=== PATIENT | male | born 1935 | race Caucasian/White ===

== ENCOUNTER 2019-04-08 07:26 | Emergency (ER) | payer MEDICARE, OTHER ==
[~2019-04-08] VITALS: Ht 182.9 cm; Wt 82.5 kg
[2019-04-08 08:43] VITALS: BP 143/108
== END 2019-04-08 10:35 | disposition home or self-care (01) ==
LOC: ER 07:27
DX: S93.402A Sprain of unspecified ligament of left ankle, initial encounter (principal); S80.02XA Contusion of left knee, initial encounter; S80.01XA Contusion of right knee, initial encounter; S90.02XA Contusion of left ankle, initial encounter; S80.212A Abrasion, left knee, initial encounter; S80.211A Abrasion, right knee, initial encounter; Z88.0 Allergy status to penicillin; W10.8XXA Fall (on) (from) other stairs and steps, initial encounter; Y93.01 Activity, walking, marching and hiking; Y92.89 Other specified places as the place of occurrence of the external cause; Y99.8 Other external cause status
CPT/HCPCS: 29505; 73564; 73610; 73630; 99284

== ENCOUNTER 2019-04-19 11:21 | Outpatient (CLI) | payer MEDICARE, OTHER ==
[2019-04-19 11:32] VITALS: BP 100/63
== END 2019-04-19 14:45 | disposition home or self-care (01) ==
LOC: ORTHO 11:21
PROVIDERS: ATTEND Orthopaedic Surgery
DX: M19.072 Primary osteoarthritis, left ankle and foot (principal)
CPT/HCPCS: 73610; G0463

== ENCOUNTER 2021-02-26 18:30 | Emergency (ER) | payer MEDICARE, OTHER ==
[~2021-02-26] VITALS: Ht 182.9 cm; Wt 81.8 kg
[~2021-02-26 18:30] MED LIST: AMIO200T67 PO; APIX5TAB3 PO; CARV6.253 PO; MULT-1074 PO; NITR0.4T51 SL; OMEG1CAP46 PO; SIMV20TA PO; VIT1CAPS46 PO
[2021-02-26 18:40] VITALS: BP 180/88
--- NOTE | 2021-02-26 18:55 | NUR ---
He came in by EMS. Brought to triage. Many covid symptoms despite vaccination, taken to [facility]
--- NOTE | 2021-02-26 19:36 | NUR ---
atilio (daughter) [phone] Oskar (son) [phone]
[2021-02-26 20:57] LABS: EOSINOPHILS % (AUTO) 0.1 % (0-6); HEMOGLOBIN 14.9 g/dl (14.0-17.9); MONOCYTES # (AUTO) 0.6 X10'3 (0-0.9)
[2021-02-26 20:59] LABS: BASOPHILS % (AUTO) 0.6 % (0-1); HEMATOCRIT 44.3 % (42.0-52.0); LYMPHOCYTES # (AUTO) 0.5 X10'3 (1.1-4.8); LYMPHOCYTES % (AUTO) 5.8 % (21-51); MEAN CORPUSCULAR HGB CONC 33.5 g/dL (33.0-36.5); MEAN CORPUSCULAR VOLUME 95.6 FL (78-98); MEAN PLATELET VOLUME 7.7 FL (7.4-10.4); MONOCYTES % (AUTO) 8.2 % (2-12); NEUTROPHILS # (AUTO) 6.7 X10'3 (1.8-7.7); NEUTROPHILS % (AUTO) 85.3 % (42-75); PLATELET COUNT 224 X10'3 (140-440); RED BLOOD COUNT 4.64 X10'6 (4.70-6.10); RED CELL DISTRIBUTION WIDTH 14.1 % (11.5-14.5); WHITE BLOOD COUNT 7.8 X10'3 (4.5-11.0)
[2021-02-26 21:22] LABS: ALANINE AMINOTRANSFERASE 38 U/L (12-78); ALBUMIN 4.1 G/DL (3.4-5.0); ALBUMIN/GLOBULIN RATIO 1.1 (1.1-1.5); ALKALINE PHOSPHATASE 86 IU/L (46-116); ANION GAP 9 (8-16); ASPARTATE AMINO TRANSFERASE 37 U/L (10-37); BILIRUBIN,TOTAL 0.6 MG/DL (0.1-1.0); BLOOD UREA NITROGEN 19 MG/DL (7-18); BUN/CREATININE RATIO 17.9 (5.4-32.0); CALCIUM 9.1 MG/DL (8.5-10.1); CHLORIDE 104 MMOL/L (99-107); CREATININE 1.06 MG/DL (0.60-1.10); GLUCOSE 131 MG/DL (70-104); POTASSIUM 3.8 MMOL/L (3.5-5.1); SODIUM 140 MMOL/L (135-145); TOTAL CARBON DIOXIDE 27.5 MMOL/L (24-32); TOTAL PROTEIN 7.7 G/DL (6.4-8.2); eGFR 66 ML/MIN
== END 2021-02-26 23:10 | disposition home or self-care (01) ==
LOC: ER 18:31
DX: R53.1 Weakness (principal); Z20.822 Contact with and (suspected) exposure to COVID-19; R05 Cough; R11.0 Nausea; R06.02 Shortness of breath; I48.91 Unspecified atrial fibrillation; I10 Essential (primary) hypertension; Z88.0 Allergy status to penicillin; Z79.899 Other long term (current) drug therapy; Z79.01 Long term (current) use of anticoagulants; W19.XXXA Unspecified fall, initial encounter
CPT/HCPCS: 36415; 71045; 80053; 85025; 87635; 93005; 99285; C9803; U0003; U0005

== ENCOUNTER 2021-03-11 06:56 | Outpatient (CLI) | payer OTHER ==
[~2021-03-11] VITALS: Ht 182.9 cm; Wt 78.9 kg
[2021-03-11] MEDS ORDERED: albuterol 2.5 MG/3 ML nebule NEB ONE (08:00)
== END 2021-03-11 23:59 | disposition home or self-care (01) ==
LOC: RT 06:56
PROVIDERS: ATTEND Internal Medicine Cardiovascular Disease
DX: R94.2 Abnormal results of pulmonary function studies (principal); J98.11 Atelectasis; M47.819 Spondylosis without myelopathy or radiculopathy, site unspecified; Z79.899 Other long term (current) drug therapy
CPT/HCPCS: 71046; 94060; 94727; 94729; 94760

== ENCOUNTER 2021-10-20 15:57 | Inpatient (IN) | payer OTHER ==
[~2021-10-20] VITALS: Ht 182.9 cm; Wt 87.8 kg
[2021-10-20 16:31] LABS: BASOPHILS # (AUTO) 0.1 X10'3 (0-0.2); BASOPHILS % (AUTO) 1.2 % (0-1); EOSINOPHILS # (AUTO) 0.1 X10'3 (0-0.9); EOSINOPHILS % (AUTO) 1.5 % (0-6); HEMATOCRIT 40.7 % (42.0-52.0); HEMOGLOBIN 13.4 g/dl (14.0-17.9); LYMPHOCYTES # (AUTO) 1.2 X10'3 (1.1-4.8); LYMPHOCYTES % (AUTO) 15.1 % (21-51); MEAN CORPUSCULAR HEMOGLOBIN 31.1 PG (27.0-31.0); MEAN CORPUSCULAR HGB CONC 32.8 g/dL (33.0-36.5); MEAN CORPUSCULAR VOLUME 94.8 FL (78-98); MEAN PLATELET VOLUME 8.3 FL (7.4-10.4); MONOCYTES # (AUTO) 0.6 X10'3 (0-0.9); MONOCYTES % (AUTO) 7.3 % (2-12); NEUTROPHILS # (AUTO) 5.8 X10'3 (1.8-7.7); NEUTROPHILS % (AUTO) 74.9 % (42-75); PLATELET COUNT 233 X10'3 (140-440); RED BLOOD COUNT 4.29 X10'6 (4.70-6.10); RED CELL DISTRIBUTION WIDTH 15.5 % (11.5-14.5); WHITE BLOOD COUNT 7.7 X10'3 (4.5-11.0)
[2021-10-20 17:03] LABS: ALANINE AMINOTRANSFERASE 37 U/L (12-78); ALBUMIN 4.1 G/DL (3.4-5.0); ALBUMIN/GLOBULIN RATIO 1.1 (1.1-1.5); ALKALINE PHOSPHATASE 81 IU/L (46-116); ANION GAP 10 (8-16); ASPARTATE AMINO TRANSFERASE 28 U/L (10-37); BILIRUBIN,TOTAL 0.8 MG/DL (0.1-1.0); BLOOD UREA NITROGEN 26 MG/DL (7-18); BUN/CREATININE RATIO 18.6 (5.4-32.0); CALCIUM 9.2 MG/DL (8.5-10.1); CHLORIDE 105 MMOL/L (99-107); GLUCOSE 128 MG/DL (70-104); POTASSIUM 4.1 MMOL/L (3.5-5.1); SODIUM 143 MMOL/L (135-145); TOTAL CARBON DIOXIDE 28.4 MMOL/L (24-32); TOTAL PROTEIN 7.7 G/DL (6.4-8.2); eGFR 48 ML/MIN
--- NOTE | 2021-10-20 18:00 | NUR ---
PT IS RESTING QUIETLY ON GURNEY, RESP EVEN AND UNLABORED, SKIN P/W/D, PT SAID HIS NORMAL HEART RATE IS MID 40S, RANGING FROM 35 TO 45 ON MONITOR, PT DENIES FEELING DIZZY, LIGHTHEADED
--- NOTE | 2021-10-20 18:26 | NUR ---
PT MOVED FROM FAST TRACK TO ROOM 13
[2021-10-20] MEDS ORDERED: SIMV-42 PO (19:36)
[2021-10-20] MEDS ORDERED: LISI20TA28 PO ×2 (19:36→19:37)
[2021-10-20] MEDS ORDERED: nitroGLYCERIN 0.4mg SUBLingual tab SL PRN ×2 (20:00→20:05)
[2021-10-20] MEDS ORDERED: normal saline 1000ml 1,000 ML IV SCH (20:00)
[2021-10-20] MEDS ORDERED: non-formulary drug (Vit C/E/Zn/Coppr/Lutein/Zeaxan (Preservision Areds 2 Softgel) 1 CAP) PO SCH (20:00)
[2021-10-20] MEDS: carvedilol 6.25mg tablet PO SCH (20:00)
[2021-10-20] MEDS ORDERED: mag hydrox/Alum hydrox/simeth 30ml oral suspension PO PRN (20:05)
[2021-10-20] MEDS ORDERED: magnesium 2GM in 50ml NS 50 ML IV PRN (20:05)
[2021-10-20] MEDS ORDERED: potassium CL 10mEq/100ml bag 100 ML IV PRN (20:05)
[2021-10-20] MEDS ORDERED: magnesium hydroxide 30ml (MOM) UD suspension PO PRN (20:05)
[2021-10-20] MEDS ORDERED: ipratropium/albuterol 3ml nebule NEB PRN (20:05)
[2021-10-20] MEDS ORDERED: PERFLUTREN PROTEIN-A MICROSPHR (Optison) 0.22 MG/ML 3ML VIAL IV ONE (20:05)
[2021-10-20] MEDS ORDERED: aminophylline 250mg/10ml inj. IV PRN (20:05)
[2021-10-20] MEDS ORDERED: potassium Cl 20 mEq SR tablet PO PRN ×2 (20:05)
[2021-10-20] MEDS ORDERED: regadenoson 0.4mg/5ml syringe IV PRN (20:05)
[2021-10-20] MEDS ORDERED: magnesium 4gm in 100ml NS 100 ML IV PRN (20:05)
[2021-10-20] MEDS ORDERED: albuterol 2.5 MG/3 ML nebule NEB PRN (20:05)
[2021-10-20] MEDS ORDERED: acetaminophen 325mg tablet PO PRN (20:05)
[2021-10-20] MEDS ORDERED: ondansetron/PF 4mg/2ml inj IV PRN (20:05)
[2021-10-20] MEDS ORDERED: metoprolol tartrate 1mg/ml inj IV PRN (20:05)
[2021-10-20] MEDS: apixaban 5mg tablet PO SCH (20:48)
[2021-10-20] MEDS: OMEGA-3/DHA/EPA/FISH OIL 1 EACH CAPSULE.DR PO SCH (20:48)
[2021-10-20] MEDS: atorvastatin 20mg tablet PO SCH (20:48)
--- NOTE | 2021-10-20 22:37 | NUR ---
Received report from WILMAR Villarreal. Awaiting patient arrival to the floor.
[2021-10-20] MEDS ORDERED: iohexol 350MG/ML 100ml bottle IV ONE (23:23)
--- NOTE | 2021-10-20 23:29 | NUR ---
Pt taken to CT and then will be taken to new room on the floor by RN
[2021-10-21] VITALS (8 sets, daily range): BP systolic 111–170; BP diastolic 52–76
[2021-10-21] MEDS ORDERED: albuterol 2.5 MG/3 ML nebule NEB STA (00:53)
[2021-10-21] MEDS ORDERED: LIDOcaine 2% 10ml TOPICAL JELLY (Urojet) MM ONE (01:05)
[2021-10-21] MEDS ORDERED: furosemide 40mg/4ml inj IV ONE (01:05)
[2021-10-21 01:12] LABS: ABG BASE EXCESS -2.4 mmol/L (-2.0-2.0); ABG HCO3 22.7 mmol/L (22.0-26.0); ABG OXYGEN SATURATION 93.1 % (94-97); ABG PCO2 (T) 39.1 mmHg (35.0-48.0); ABG PO2 (T) 65.1 mmHg (75.0-100.0); ALLEN'S TEST Modified; FCOHb 0.4 % (0.0-3.9); FLOW 6 L/min; FMetHb 0.2 % (0.0-1.5); FO2Hb 92.5 % (94-97); PATIENT TEMPERATURE 36.4; TOTAL HEMOGLOBIN 14.3 G/dl (14.0-18.0)
[2021-10-21 01:25] LABS: BASOPHILS # (AUTO) 0.1 X10'3 (0-0.2); BASOPHILS % (AUTO) 0.7 % (0-1); EOSINOPHILS # (AUTO) 0.2 X10'3 (0-0.9); EOSINOPHILS % (AUTO) 1.8 % (0-6); HEMATOCRIT 40.3 % (42.0-52.0); HEMOGLOBIN 13.8 g/dl (14.0-17.9); LYMPHOCYTES # (AUTO) 1.3 X10'3 (1.1-4.8); LYMPHOCYTES % (AUTO) 13.1 % (21-51); MEAN CORPUSCULAR HEMOGLOBIN 32.5 PG (27.0-31.0); MEAN CORPUSCULAR HGB CONC 34.2 g/dL (33.0-36.5); MEAN PLATELET VOLUME 8.3 FL (7.4-10.4); MONOCYTES # (AUTO) 0.7 X10'3 (0-0.9); MONOCYTES % (AUTO) 6.6 % (2-12); NEUTROPHILS # (AUTO) 7.9 X10'3 (1.8-7.7); NEUTROPHILS % (AUTO) 77.8 % (42-75); PLATELET COUNT 218 X10'3 (140-440); RED BLOOD COUNT 4.24 X10'6 (4.70-6.10); RED CELL DISTRIBUTION WIDTH 15.1 % (11.5-14.5); WHITE BLOOD COUNT 10.2 X10'3 (4.5-11.0)
--- NOTE | 2021-10-21 01:30 | NUR ---
0025: Patient complained of sudden onset/worsening shortness of breath. Elevated patient head of bed to high Velasquez's and placed on 2L NC as SpO2 was down to 70% on room air, with BP of 171/77 HR 59, Temp 97.6, RR 30. Paged RT and Rapid response. 0035: Rapid response Team arrived and evaluated the patient. Night time Hospitalist MD Jerzy aware and orders placed appropriately for treatment. 0125: Patient remained on the floor. Patient states he's feeling better. Will continue to monitor patient.
[2021-10-21 01:34] LABS: APTT 34 SECONDS (22-32)
[2021-10-21 01:43] LABS: ALBUMIN 3.9 G/DL (3.4-5.0); ANION GAP 8 (8-16); BLOOD UREA NITROGEN 25 MG/DL (7-18); BUN/CREATININE RATIO 19.2 (5.4-32.0); CALCIUM 8.8 MG/DL (8.5-10.1); CHLORIDE 106 MMOL/L (99-107); GLUCOSE 154 MG/DL (70-104); POTASSIUM 4.1 MMOL/L (3.5-5.1); SODIUM 141 MMOL/L (135-145); TOTAL CARBON DIOXIDE 26.6 MMOL/L (24-32); eGFR 52 ML/MIN
--- NOTE | 2021-10-21 06:22 | NUR ---
Problems reprioritized. Patient report given, questions answered & plan of care reviewed with WILMAR Curry.
[2021-10-21] MEDS: carvedilol 6.25mg tablet PO SCH ×2 (08:00→20:12)
[2021-10-21] MEDS: apixaban 5mg tablet PO SCH (08:00)
[2021-10-21] MEDS: OMEGA-3/DHA/EPA/FISH OIL 1 EACH CAPSULE.DR PO SCH ×2 (08:00→20:12)
[2021-10-21] MEDS: K and/or MAG REPLACEMENT MC SCH ×2 (08:00→19:06)
[2021-10-21] MEDS: multivitamins, therapeutics tablet PO SCH (08:33)
[2021-10-21] MEDS: docusate sod 100mg capsule PO SCH ×2 (08:33→20:12)
[2021-10-21] MEDS: amiodarone 200mg tablet PO SCH (08:38)
[2021-10-21 08:39] LABS: BASOPHILS % (AUTO) 0.5 % (0-1); EOSINOPHILS % (AUTO) 0.2 % (0-6); HEMATOCRIT 41.5 % (42.0-52.0); HEMOGLOBIN 14.1 g/dl (14.0-17.9); LYMPHOCYTES # (AUTO) 0.9 X10'3 (1.1-4.8); LYMPHOCYTES % (AUTO) 8.8 % (21-51); MEAN CORPUSCULAR HEMOGLOBIN 32.4 PG (27.0-31.0); MEAN CORPUSCULAR VOLUME 95.2 FL (78-98); MEAN PLATELET VOLUME 8.3 FL (7.4-10.4); MONOCYTES # (AUTO) 0.7 X10'3 (0-0.9); MONOCYTES % (AUTO) 6.9 % (2-12); NEUTROPHILS # (AUTO) 8.1 X10'3 (1.8-7.7); NEUTROPHILS % (AUTO) 83.6 % (42-75); PLATELET COUNT 222 X10'3 (140-440); RED BLOOD COUNT 4.36 X10'6 (4.70-6.10); RED CELL DISTRIBUTION WIDTH 14.9 % (11.5-14.5); WHITE BLOOD COUNT 9.7 X10'3 (4.5-11.0)
--- NOTE | 2021-10-21 08:40 | NUR ---
PAGER ID: [phone] MESSAGE: [id number]. Jaya Rao. Active hematuria with sediment from f/c. UA? give or hold Eliquis? Thx Nathalie [phone]
[2021-10-21 08:47] LABS: ALANINE AMINOTRANSFERASE 41 U/L (12-78); ALBUMIN 4.1 G/DL (3.4-5.0); ALBUMIN/GLOBULIN RATIO 1.2 (1.1-1.5); ALKALINE PHOSPHATASE 74 IU/L (46-116); ANION GAP 10 (8-16); ASPARTATE AMINO TRANSFERASE 33 U/L (10-37); BILIRUBIN,TOTAL 1.2 MG/DL (0.1-1.0); BLOOD UREA NITROGEN 24 MG/DL (7-18); BUN/CREATININE RATIO 18.6 (5.4-32.0); CALCIUM 9.1 MG/DL (8.5-10.1); CHLORIDE 103 MMOL/L (99-107); CREATININE 1.29 MG/DL (0.60-1.10); GLUCOSE 115 MG/DL (70-104); MAGNESIUM 2.1 MG/DL (1.5-2.4); POTASSIUM 3.8 MMOL/L (3.5-5.1); SODIUM 142 MMOL/L (135-145); TOTAL CARBON DIOXIDE 29.1 MMOL/L (24-32); TOTAL PROTEIN 7.6 G/DL (6.4-8.2); eGFR 53 ML/MIN
[2021-10-21] MEDS: lisinopril 20mg tablet PO SCH (08:49)
[2021-10-21] MEDS: furosemide 40mg/4ml inj IV SCH ×2 (09:10→20:29)
--- NOTE | 2021-10-21 10:56 | NUR ---
Per MD Fuentes - hold eliquis for today - restart 10/22/21.
--- NOTE | 2021-10-21 10:58 | NUR ---
Per MD Fuentes - irrigate f/c until clear, not continous irrigation. Per Addendum: 10/21/21 at 1100 by Nathalie Herrera RN No UA needed at this time.
[2021-10-21] MEDS ORDERED: aminophylline 500mg/20ml vial IV PRN (13:05)
--- NOTE | 2021-10-21 13:55 | NUR ---
Lydia-care/FC care performed, scant amount of blood tinged discharge at meatus MD aware, catheter flushed until clear per MD orders 120mL of sterile water used to obtain clear drainage. Patient tolerated well with no c/o pain or discomfort.
--- NOTE | 2021-10-21 15:16 | NUR ---
Paged Dr Fuentes PAGER ID: [phone] MESSAGE: [id number]. Jaya Rao. Need diet order. [facility] Nathalie [phone]
--- NOTE | 2021-10-21 17:56 | NUR ---
Orientee documentation: I have reviewed and agree with all interventions, assessments performed and documented by BINU Crabtree II.
--- NOTE | 2021-10-21 18:36 | NUR ---
Patient in room PCU 3015. I have received report from ALEXANDER URBAN and had the opportunity to ask questions and assume patient care.
[2021-10-21] MEDS: atorvastatin 20mg tablet PO SCH (20:12)
[2021-10-21] MEDS ORDERED: furosemide 40mg/4ml inj ONE (20:28)
[2021-10-22 02:00] VITALS: BP 122/40
[2021-10-22 06:00] VITALS: BP 100/37
--- NOTE | 2021-10-22 06:14 | NUR ---
Problems reprioritized. Patient report given, questions answered & plan of care reviewed with RONY URBAN.
[2021-10-22 06:45] LABS: BASOPHILS # (AUTO) 0.1 X10'3 (0-0.2); BASOPHILS % (AUTO) 0.7 % (0-1); EOSINOPHILS # (AUTO) 0.1 X10'3 (0-0.9); EOSINOPHILS % (AUTO) 0.5 % (0-6); HEMATOCRIT 40.8 % (42.0-52.0); HEMOGLOBIN 13.8 g/dl (14.0-17.9); LYMPHOCYTES % (AUTO) 10.6 % (21-51); MEAN CORPUSCULAR HEMOGLOBIN 31.6 PG (27.0-31.0); MEAN CORPUSCULAR HGB CONC 33.9 g/dL (33.0-36.5); MEAN CORPUSCULAR VOLUME 93.2 FL (78-98); MEAN PLATELET VOLUME 8.5 FL (7.4-10.4); MONOCYTES # (AUTO) 0.9 X10'3 (0-0.9); MONOCYTES % (AUTO) 9.5 % (2-12); NEUTROPHILS # (AUTO) 7.7 X10'3 (1.8-7.7); NEUTROPHILS % (AUTO) 78.7 % (42-75); PLATELET COUNT 227 X10'3 (140-440); RED BLOOD COUNT 4.37 X10'6 (4.70-6.10); RED CELL DISTRIBUTION WIDTH 15.2 % (11.5-14.5); WHITE BLOOD COUNT 9.8 X10'3 (4.5-11.0)
[2021-10-22 07:11] LABS: ALANINE AMINOTRANSFERASE 36 U/L (12-78); ALBUMIN 3.7 G/DL (3.4-5.0); ALBUMIN/GLOBULIN RATIO 1.1 (1.1-1.5); ALKALINE PHOSPHATASE 67 IU/L (46-116); ANION GAP 9 (8-16); ASPARTATE AMINO TRANSFERASE 27 U/L (10-37); BILIRUBIN,TOTAL 1.3 MG/DL (0.1-1.0); BLOOD UREA NITROGEN 30 MG/DL (7-18); BUN/CREATININE RATIO 20.8 (5.4-32.0); CHLORIDE 102 MMOL/L (99-107); CREATININE 1.44 MG/DL (0.60-1.10); GLUCOSE 126 MG/DL (70-104); MAGNESIUM 2.2 MG/DL (1.5-2.4); POTASSIUM 3.5 MMOL/L (3.5-5.1); SODIUM 142 MMOL/L (135-145); TOTAL CARBON DIOXIDE 30.9 MMOL/L (24-32); eGFR 47 ML/MIN
[2021-10-22 07:54] LABS: CALCIUM 9.1 MG/DL (8.5-10.1)
[2021-10-22] MEDS: lisinopril 20mg tablet PO SCH (08:00)
[2021-10-22] MEDS: K and/or MAG REPLACEMENT MC SCH ×2 (08:00→20:00)
[2021-10-22] MEDS: furosemide 40mg/4ml inj IV SCH ×2 (08:00→20:15)
[2021-10-22] MEDS: OMEGA-3/DHA/EPA/FISH OIL 1 EACH CAPSULE.DR PO SCH ×2 (09:49→20:16)
[2021-10-22] MEDS: amiodarone 200mg tablet PO SCH (09:49)
[2021-10-22] MEDS: multivitamins, therapeutics tablet PO SCH (09:53)
[2021-10-22] MEDS: docusate sod 100mg capsule PO SCH ×2 (09:54→20:16)
[2021-10-22] MEDS: apixaban 5mg tablet PO SCH ×2 (09:54→20:16)
[2021-10-22] MEDS: carvedilol 6.25mg tablet PO SCH ×2 (09:54→20:16)
[2021-10-22 11:00] VITALS: BP_SYST 106; BP_SYST 125; BP_DIAS 49; BP_DIAS 55
[2021-10-22] MEDS ORDERED: ondansetron 4mg rapidly disintigrating tab PO PRN (12:25)
[2021-10-22] MEDS ORDERED: aminophylline 250mg/10ml inj. IV PRN (14:30)
[2021-10-22] MEDS ORDERED: regadenoson 0.4mg/5ml syringe IV PRN (14:30)
[2021-10-22] MEDS ORDERED: metoprolol tartrate 1mg/ml inj IV PRN (14:30)
[2021-10-22] MEDS ORDERED: nitroGLYCERIN 0.4mg SUBLingual tab SL PRN (14:30)
--- NOTE | 2021-10-22 19:09 | NUR ---
Patient in room PCU 3015. I have received report from RONY URBAN and had the opportunity to ask questions and assume patient care.
[2021-10-22 19:44] VITALS: BP 149/92
[2021-10-22] MEDS ORDERED: furosemide 40mg/4ml inj ONE (20:10)
[2021-10-22] MEDS: atorvastatin 20mg tablet PO SCH (20:16)
[2021-10-22 23:01] VITALS: BP 132/57
[2021-10-23] VITALS (9 sets, daily range): BP systolic 118–177; BP diastolic 47–135
--- NOTE | 2021-10-23 06:12 | NUR ---
Problems reprioritized. Patient report given, questions answered & plan of care reviewed with WILMAR Rogers.
--- NOTE | 2021-10-23 06:16 | NUR ---
Problems reprioritized. Patient report given, questions answered & plan of care reviewed with ALEXANDER URBAN.
--- NOTE | 2021-10-23 06:16 | NUR ---
Student documentation: I have reviewed and agree with all interventions, assessments performed and documented by CAT STUDENT.
--- NOTE | 2021-10-23 06:16 | NUR ---
Student Medication Administration: For this medication-pass time frame, all medication were reviewed, dispensed, administered and documented per hospital policy by CAT STUDENT.
--- NOTE | 2021-10-23 06:20 | NUR ---
Problems reprioritized. Patient report given, questions answered & plan of care reviewed with RONY URBAN.
--- NOTE | 2021-10-23 06:21 | NUR ---
Student documentation: I have reviewed and agree with all interventions, assessments performed and documented by CAT STUDENT.
--- NOTE | 2021-10-23 06:22 | NUR ---
Student Medication Administration: For this medication-pass time frame, all medication were reviewed, dispensed, administered and documented per hospital policy by CAT STUDENT.
[2021-10-23 06:40] LABS: BASOPHILS % (AUTO) 0.5 % (0-1); EOSINOPHILS # (AUTO) 0.1 X10'3 (0-0.9); EOSINOPHILS % (AUTO) 1.3 % (0-6); HEMATOCRIT 42.8 % (42.0-52.0); HEMOGLOBIN 14.4 g/dl (14.0-17.9); LYMPHOCYTES # (AUTO) 1.2 X10'3 (1.1-4.8); LYMPHOCYTES % (AUTO) 13.1 % (21-51); MEAN CORPUSCULAR HGB CONC 33.7 g/dL (33.0-36.5); MEAN PLATELET VOLUME 8.1 FL (7.4-10.4); MONOCYTES # (AUTO) 0.9 X10'3 (0-0.9); MONOCYTES % (AUTO) 10.6 % (2-12); NEUTROPHILS # (AUTO) 6.6 X10'3 (1.8-7.7); NEUTROPHILS % (AUTO) 74.5 % (42-75); PLATELET COUNT 219 X10'3 (140-440); RED BLOOD COUNT 4.51 X10'6 (4.70-6.10); RED CELL DISTRIBUTION WIDTH 14.8 % (11.5-14.5); WHITE BLOOD COUNT 8.8 X10'3 (4.5-11.0)
[2021-10-23 07:09] LABS: ALANINE AMINOTRANSFERASE 31 U/L (12-78); ALBUMIN 3.4 G/DL (3.4-5.0); ALBUMIN/GLOBULIN RATIO 0.9 (1.1-1.5); ALKALINE PHOSPHATASE 62 IU/L (46-116); ANION GAP 6 (8-16); ASPARTATE AMINO TRANSFERASE 28 U/L (10-37); BLOOD UREA NITROGEN 35 MG/DL (7-18); CALCIUM 9.2 MG/DL (8.5-10.1); CHLORIDE 100 MMOL/L (99-107); GLUCOSE 126 MG/DL (70-104); POTASSIUM 3.5 MMOL/L (3.5-5.1); SODIUM 138 MMOL/L (135-145); TOTAL CARBON DIOXIDE 31.7 MMOL/L (24-32); eGFR 48 ML/MIN
[2021-10-23] MEDS: K and/or MAG REPLACEMENT MC SCH (08:00)
[2021-10-23] MEDS: apixaban 5mg tablet PO SCH (11:12)
[2021-10-23] MEDS: OMEGA-3/DHA/EPA/FISH OIL 1 EACH CAPSULE.DR PO SCH (11:12)
[2021-10-23] MEDS: carvedilol 6.25mg tablet PO SCH (11:13)
[2021-10-23] MEDS: amiodarone 200mg tablet PO SCH (11:13)
[2021-10-23] MEDS: docusate sod 100mg capsule PO SCH (11:13)
[2021-10-23] MEDS: multivitamins, therapeutics tablet PO SCH (11:13)
[2021-10-23] MEDS: lisinopril 20mg tablet PO SCH (11:13)
[2021-10-23] MEDS ORDERED: furosemide 40mg/4ml inj IV SCH (11:37)
[2021-10-23] MEDS ORDERED: IPRA3AMP9 NEB (12:23)
[2021-10-23] MEDS ORDERED: FURO-150 PO (14:08)
[2021-10-23] MEDS ORDERED: ALBU8.5H17 IH (14:08)
--- NOTE | 2021-10-23 16:36 | NUR ---
PAGER ID: [phone] MESSAGE: room 2523N meds need to be finalized for discharge thank you ginny SCHMID
--- NOTE | 2021-10-23 17:52 | NUR ---
Pt was discharged 1745 gave all discharged instruction and medication instructions. Answered all question. All IVs have been removed. Matute cath has been removed. Family picked up.
== END 2021-10-23 17:36 | disposition home or self-care (01) | DRG 189 ==
LOC: ER 15:58 → ED HOLD 20:09 → OBSVTOIN 20:09 → EDBEDREQ 22:19 → PCU 3S 23:45
PROVIDERS: ADMIT Family Medicine; ATTEND Internal Medicine
PROC: B32T1ZZ Computerized Tomography (CT Scan) of Left Pulmonary Artery using Low Osmolar Contrast (ICD-10-PCS; 2021-10-20)
PROC: B3201ZZ Computerized Tomography (CT Scan) of Thoracic Aorta using Low Osmolar Contrast (ICD-10-PCS; 2021-10-20)
PROC: B32S1ZZ Computerized Tomography (CT Scan) of Right Pulmonary Artery using Low Osmolar Contrast (ICD-10-PCS; 2021-10-20)
PROC: 4A02XM4 Measurement of Cardiac Total Activity, External Approach (ICD-10-PCS; principal; 2021-10-23)
PROC: 3E033HZ Introduction of Radioactive Substance into Peripheral Vein, Percutaneous Approach (ICD-10-PCS; 2021-10-23)
DX: J96.01 Acute respiratory failure with hypoxia (principal); I50.31 Acute diastolic (congestive) heart failure; I48.20 Chronic atrial fibrillation, unspecified; I11.0 Hypertensive heart disease with heart failure; E78.5 Hyperlipidemia, unspecified; I25.10 Atherosclerotic heart disease of native coronary artery without angina pectoris; Z20.822 Contact with and (suspected) exposure to COVID-19; I95.9 Hypotension, unspecified; N40.0 Benign prostatic hyperplasia without lower urinary tract symptoms; R31.9 Hematuria, unspecified; Z79.01 Long term (current) use of anticoagulants; Z82.49 Family history of ischemic heart disease and other diseases of the circulatory system; Z85.46 Personal history of malignant neoplasm of prostate; Z86.73 Personal history of transient ischemic attack (TIA), and cerebral infarction without residual deficits; Z87.891 Personal history of nicotine dependence; Z95.5 Presence of coronary angioplasty implant and graft; Z88.0 Allergy status to penicillin; Z79.899 Other long term (current) drug therapy
CPT/HCPCS: 36415; 36600; 71045; 78452; 80048; 80053; 82803; 83605; 83735; 83880; 84484; 85018; 85025; 85610; 85730; 87081; 87635; 93005; 93017; 93306; 94640; 94760; 94799; 97116; 97161; 97530; 99285; A9500; G0378; J1940; J2785; J7030; Q9967

== ENCOUNTER 2022-01-19 06:02 | Day surgery (SDC) | payer OTHER ==
[2022-01-18 10:33] LABS: BASOPHILS # (AUTO) 0.1 X10'3 (0-0.2); EOSINOPHILS # (AUTO) 0.1 X10'3 (0-0.9); EOSINOPHILS % (AUTO) 1.9 % (0-6); HEMATOCRIT 41.3 % (42.0-52.0); HEMOGLOBIN 13.9 g/dl (14.0-17.9); LYMPHOCYTES # (AUTO) 1.2 X10'3 (1.1-4.8); LYMPHOCYTES % (AUTO) 14.6 % (21-51); MEAN CORPUSCULAR HEMOGLOBIN 32.1 PG (27.0-31.0); MEAN CORPUSCULAR HGB CONC 33.6 g/dL (33.0-36.5); MEAN CORPUSCULAR VOLUME 95.5 FL (78-98); MEAN PLATELET VOLUME 7.9 FL (7.4-10.4); MONOCYTES # (AUTO) 0.6 X10'3 (0-0.9); MONOCYTES % (AUTO) 8.1 % (2-12); NEUTROPHILS # (AUTO) 5.9 X10'3 (1.8-7.7); NEUTROPHILS % (AUTO) 74.4 % (42-75); PLATELET COUNT 247 X10'3 (140-440); RED BLOOD COUNT 4.32 X10'6 (4.70-6.10); RED CELL DISTRIBUTION WIDTH 14.2 % (11.5-14.5); WHITE BLOOD COUNT 7.9 X10'3 (4.5-11.0)
[2022-01-18 10:42] LABS: ALBUMIN 3.9 G/DL (3.4-5.0); ANION GAP 6 (8-16); BLOOD UREA NITROGEN 44 MG/DL (7-18); BUN/CREATININE RATIO 34.6 (5.4-32.0); CALCIUM 9.3 MG/DL (8.5-10.1); CHLORIDE 104 MMOL/L (99-107); CREATININE 1.27 MG/DL (0.60-1.10); GLUCOSE 113 MG/DL (70-104); POTASSIUM 4.6 MMOL/L (3.5-5.1); SODIUM 140 MMOL/L (135-145); TOTAL CARBON DIOXIDE 30.2 MMOL/L (24-32); eGFR 54 ML/MIN
[2022-01-18 10:45] LABS: APTT 29 SECONDS (22-32)
[~2022-01-19] VITALS: Ht 182.9 cm; Wt 80.4 kg
[~2022-01-19 06:02] MED LIST changes: +ALBU8.5H17 IH; +FURO-150 PO; +IPRA3AMP9 NEB; +LISI20TA28 PO; +SIMV-42 PO; -SIMV20TA PO; +ceFAZolin inj. 2,000 MG in dextrose 5%-water 100 ML IV ONE
[2022-01-19] MEDS ORDERED: HYDR12.55 PO (06:43)
[2022-01-19] MEDS ORDERED: VIT1CAPS46 PO (06:43)
[2022-01-19] MEDS ORDERED: FURO-150 PO (06:43)
[2022-01-19] MEDS ORDERED: AMIO100T4 PO (06:43)
[2022-01-19] MEDS ORDERED: CARV-49 PO (06:43)
[2022-01-19] MEDS ORDERED: AMLO5TAB PO (06:43)
[2022-01-19] MEDS ORDERED: DOCU-148 PO (06:43)
[2022-01-19] MEDS ORDERED: OMEG1CAP46 PO (06:43)
[2022-01-19 07:00] VITALS: BP 95/53
[2022-01-19] MEDS ORDERED: clindamycin-Cleocin 900mg/D5W 50 ML IV ONE (07:10)
--- NOTE | 2022-01-19 08:50 | NUR ---
at bedside, procedure cancelled.
== END 2022-01-19 08:50 | disposition home or self-care (01) ==
LOC: SSTAY O 06:02
PROVIDERS: ATTEND Internal Medicine Cardiovascular Disease
DX: I49.5 Sick sinus syndrome (principal); Z53.8 Procedure and treatment not carried out for other reasons; I48.91 Unspecified atrial fibrillation; I50.30 Unspecified diastolic (congestive) heart failure; I11.0 Hypertensive heart disease with heart failure; I25.119 Atherosclerotic heart disease of native coronary artery with unspecified angina pectoris; E78.5 Hyperlipidemia, unspecified; I48.0 Paroxysmal atrial fibrillation; I25.10 Atherosclerotic heart disease of native coronary artery without angina pectoris; Z95.5 Presence of coronary angioplasty implant and graft; Z79.899 Other long term (current) drug therapy; I25.2 Old myocardial infarction; F17.210 Nicotine dependence, cigarettes, uncomplicated; Z86.73 Personal history of transient ischemic attack (TIA), and cerebral infarction without residual deficits; N18.9 Chronic kidney disease, unspecified; Z85.46 Personal history of malignant neoplasm of prostate; Z82.49 Family history of ischemic heart disease and other diseases of the circulatory system; Z88.0 Allergy status to penicillin; Z98.890 Other specified postprocedural states
CPT/HCPCS: 36415; 80048; 85025; 85610; 85730; 93005; J7030

== ENCOUNTER 2022-02-25 05:50 | Day surgery (SDC) | payer OTHER ==
[2022-02-24 08:59] LABS: BASOPHILS # (AUTO) 0.1 X10'3 (0-0.2); BASOPHILS % (AUTO) 1.1 % (0-1); EOSINOPHILS # (AUTO) 0.2 X10'3 (0-0.9); EOSINOPHILS % (AUTO) 2.7 % (0-6); HEMOGLOBIN 13.3 g/dl (14.0-17.9); LYMPHOCYTES # (AUTO) 1.1 X10'3 (1.1-4.8); LYMPHOCYTES % (AUTO) 13.6 % (21-51); MEAN CORPUSCULAR HEMOGLOBIN 31.7 PG (27.0-31.0); MEAN CORPUSCULAR HGB CONC 33.2 g/dL (33.0-36.5); MEAN CORPUSCULAR VOLUME 95.5 FL (78-98); MEAN PLATELET VOLUME 8.1 FL (7.4-10.4); MONOCYTES # (AUTO) 0.7 X10'3 (0-0.9); MONOCYTES % (AUTO) 9.6 % (2-12); NEUTROPHILS # (AUTO) 5.7 X10'3 (1.8-7.7); PLATELET COUNT 248 X10'3 (140-440); RED BLOOD COUNT 4.19 X10'6 (4.70-6.10); RED CELL DISTRIBUTION WIDTH 14.6 % (11.5-14.5); WHITE BLOOD COUNT 7.8 X10'3 (4.5-11.0)
[2022-02-24 09:06] LABS: ALBUMIN 3.8 G/DL (3.4-5.0); ANION GAP 8 (8-16); BLOOD UREA NITROGEN 41 MG/DL (7-18); BUN/CREATININE RATIO 26.6 (5.4-32.0); CALCIUM 9.4 MG/DL (8.5-10.1); CHLORIDE 103 MMOL/L (99-107); CREATININE 1.54 MG/DL (0.60-1.10); GLUCOSE 131 MG/DL (70-104); POTASSIUM 4.5 MMOL/L (3.5-5.1); SODIUM 141 MMOL/L (135-145); TOTAL CARBON DIOXIDE 30.3 MMOL/L (24-32); eGFR 43 ML/MIN
[2022-02-24 09:09] LABS: APTT 29 SECONDS (22-32)
[~2022-02-25] VITALS: Ht 180.3 cm; Wt 81.5 kg
[2022-02-25] VITALS (13 sets, daily range): BP systolic 98–128; BP diastolic 51–70
[~2022-02-25 05:50] MED LIST changes: -ALBU8.5H17 IH; +AMIO100T4 PO; -AMIO200T67 PO; +AMLO5TAB PO; +CARV-49 PO; -CARV6.253 PO; +DOCU-148 PO; +HYDR12.55 PO; -IPRA3AMP9 NEB; -ceFAZolin inj. 2,000 MG in dextrose 5%-water 100 ML IV ONE
[2022-02-25] MEDS ORDERED: normal saline 1000ml 1,000 ML IV SCH (06:15)
[2022-02-25] MEDS ORDERED: ceFAZolin inj. 2,000 MG in dextrose 5%-water 100 ML IV ONE (06:15)
[2022-02-25] MEDS ORDERED: CARV3.122 PO (06:33)
[2022-02-25] MEDS ORDERED: fentaNYL/PF 50MCG/1 ML 2ML syringe ONE (07:09)
[2022-02-25] MEDS ORDERED: LIDOcaine 1% W/epiNEPHrine 1:100,000 20ml vial ONE ×2 (07:09)
[2022-02-25] MEDS ORDERED: midazolam 1 mg/ML 2ml injection ONE (07:09)
[2022-02-25] MEDS ORDERED: clindamycin 600mg/D5W 50ml 50 ML IV ONE ×2 (07:31→08:10)
[2022-02-25] MEDS ORDERED: HYDROcodone/acetaminophen 5mg/325mg tablet PO PRN (10:15)
[2022-02-25] MEDS ORDERED: HYDROcodone/acetaminophen 10/325mg tab PO PRN (10:15)
[2022-02-25] MEDS ORDERED: vancomycin/NS 1 GM ADD-VANTAGE 250 ML X 1 DOSE IV ONE (10:15)
--- NOTE | 2022-02-25 13:20 | NUR ---
report given to WILMAR Cardenas
--- NOTE | 2022-02-25 13:20 | NUR ---
Received report from Alia URBAN, [facility].
--- NOTE | 2022-02-25 15:48 | NUR ---
Transferred care to Jose G URBAN.
== END 2022-02-25 15:20 | disposition home or self-care (01) ==
LOC: SSTAY O 05:50
PROVIDERS: ATTEND Internal Medicine Cardiovascular Disease
DX: I49.5 Sick sinus syndrome (principal); I48.0 Paroxysmal atrial fibrillation; I10 Essential (primary) hypertension; E78.5 Hyperlipidemia, unspecified; I65.29 Occlusion and stenosis of unspecified carotid artery; Z88.0 Allergy status to penicillin
CPT/HCPCS: 33208; 36415; 71045; 80048; 85025; 85610; 85730; 93005; C1785; C1894; J2250; J3010; J3370; J3490; J7030; 99152; 99153; A4565; A4620; A6258